=== PATIENT | female | born 1955 | race Caucasian/White ===

== ENCOUNTER 2017-10-16 22:23 | Emergency (ER) | payer OTHER ==
[~2017-10-16] VITALS: Ht 165.1 cm; Wt 78.5 kg
[~2017-10-16 22:23] MED LIST: ASPEC81 PO; FEXO60TA PO; FISHOIL PO; MULTTAB58 PO; NSNN50; TPRSR25 PO
[2017-10-16 22:28] VITALS: TEMP 36.8; Ht 165.1 cm; Wt 78.5 kg
[2017-10-16] MEDS ORDERED: DILTIAZEM BOLUS / DRIP IV STA (22:37)
[2017-10-16] MEDS ORDERED: DILTIAZEM HCL INJ 125 MG in DEXTROSE 5% 100ML IV PRN (22:45)
[2017-10-16] MEDS ORDERED: DILTIAZEM HCL 5 MG/ML 5 ML VIAL BOLUS/OMNI IV ONE (22:45)
[2017-10-16 23:16] LABS: BASO % 0.3 %; BASO ABS # 0.02 K/uL (0-0.2); EOS % 5.4 %; EOS ABS # 0.32 K/uL (0-0.5); HEMATOCRIT 40.1 % (37-47); HEMOGLOBIN 13.9 g/dL (12.0-16.0); IG# 0.01 K/uL (0.00-0.02); LYMPH % 24.8 %; LYMPH ABS # 1.46 K/uL (1.2-3.4); MEAN CELL VOLUME 91.1 fL (80-100); MEAN CORPUSCULAR HEMOGLOBIN 31.6 pg (25-34); MEAN CORPUSCULAR HGB CONC 34.7 g/dl (32-36); MEAN PLATELET VOLUME 10.5 fL (7.4-10.4); MONO % 13.6 %; NEUT % 55.7 %; NEUT ABS # 3.27 K/uL (1.4-6.5); PLATELET COUNT 193 K/uL (130-400); RED CELL DISTRIBUTION WIDTH SD 43.5 fL (36.4-46.3); WHITE BLOOD COUNT 5.88 K/uL (4.8-10.8)
[2017-10-16 23:35] LABS: BLOOD UREA NITROGEN 27 mg/dl (7-18); CALCIUM 9.4 mg/dl (8.5-10.1); CARBON DIOXIDE 26 mmol/L (21-32); CREATININE 0.87 mg/dl (0.60-1.20); GLUCOSE 111 mg/dl (70-99); POTASSIUM 3.6 mmol/L (3.5-5.1); SODIUM 139 mmol/L (136-145)
[2017-10-16 23:45] LABS: CKMB 2.2 ng/ml (0.5-3.6)
[2017-10-17] MEDS ORDERED: MELA1TAB5 PO (00:16)
[2017-10-17] MEDS ORDERED: METO25TA3 PO (00:16)
[2017-10-17] MEDS ORDERED: ASPI81TA28 PO (00:16)
[2017-10-17] MEDS ORDERED: MISCCAP80 PO (00:17)
[2017-10-17] MEDS ORDERED: CLR10 PO (00:17)
--- NOTE | 2017-10-17 00:20 | EMERGENCY ROOM VISIT NOTE ---
History Report prepared by Leticia: Radha Johnson Under the Supervision of: Dr. Declan Whiting D.O. First contact with patient: 22:32 Chief Complaint: CARDIAC ASSESSMENT Stated Complaint: RAPID HEART BEAT, SHORT OF BREATH History of Present Illness The patient is a 62 year old female who presents to the Emergency Room for a cardiac assessment. The patient states that she was watching TV two hours ago and started to feel her heart flutter out of her chest. She states that this has happened in the past. She notes that she is on Metoprol and took an extra 25 mg two hours ago to try to help. The patient states that she felt short of breath as well. The patient notes that she also takes an Aspirin. Source of History: patient Onset: two hours ago Position: chest Quality: other (heart fluttering out of chest) Timing: other (episode) Associated Symptoms: + SOB Review of Systems See HPI for pertinent positives & negatives. A total of 10 systems reviewed and were otherwise negative. Past Medical & Surgical Surgical Problems: (1) S/P endometrial ablation (2) S/P tubal ligation Family History FH: [place] (myocardial infarction) FATHER, Onset:60 years & older FHx: atrial fibrillation BROTHER Social History Smoking Status: Never Smoker Alcohol Use: none Marital Status: Housing Status: lives with significant other Occupation Status: employed Current/Historical Medications Scheduled Aspirin (Aspir-Low), 81 MG PO QAM Fexofenadine Hcl (Cecy Allergy), 60 MG PO DAILY PRN Fish Oil ([place]-3), 1 CAP PO DAILY Metoprolol Succinate (Metoprolol Succinate ER), 25 MG PO QAM Mometasone Furoate (Nasal) (Nasonex), 2 SPRAY NA DAILY PRN Multiple Vitamin (Multivitamin), 1 TAB PO DAILY Allergies Coded Allergies: No Known Allergies (Unverified , 02/01/12) Physical Exam Vital Signs Date Time Temp Pulse Resp B/P (MAP) Pulse Ox O2 Delivery O2 Flow Rate FiO2 10/17/17 00:00 147/86 10/16/17 23:53 66 13 96 10/16/17 23:30 142/77 10/16/17 23:23 69 16 98 10/16/17 22:59 141/85 10/16/17 22:53 75 26 98 10/16/17 22:44 77 10/16/17 22:41 155/90 1/18/18 22:28 36.8 139 19 141/90 95 Room Air Physical Exam CONSTITUTIONAL/VITAL SIGNS: Reviewed / noted above. GENERAL: Non-toxic in appearance. INTEGUMENTARY: Warm, dry, and [place]. HEAD: Normocephalic. EYES: without scleral icterus or trauma. ENT/OROPHARYNX: clear and moist. LYMPHADENOPATHY/NECK: Is supple without lymphadenopathy or meningismus. RESPIRATORY: Lungs clear and equal. CARDIOVASCULAR: Regular rate and rhythm. GI/ABDOMEN: Soft and nontender. No organomegaly or pulsatile mass. No rebound or guarding. Normal bowel sounds. EXTREMITIES: Warm and well perfused. BACK: No CVA tenderness. NEUROLOGICAL: Intact without focal deficits. PSYCHIATRIC: normal affect. MUSCULOSKELETAL: Normally developed with good muscle tone. Medical Decision & Procedures Laboratory Results 10/16/17 23:00 Red Blood Count 4.40, Mean Corpuscular Volume 91.1, Mean Corpuscular Hemoglobin 31.6, Mean Corpuscular Hemoglobin Concent 34.7, Mean Platelet Volume 10.5, Neutrophils (%) (Auto) 55.7, Lymphocytes (%) (Auto) 24.8, Monocytes (%) (Auto) 13.6, Eosinophils (%) (Auto) 5.4, Basophils (%) (Auto) 0.3, Neutrophils # (Auto ) 3.27, Lymphocytes # (Auto) 1.46, Monocytes # (Auto) 0.80, Eosinophils # (Auto ) 0.32, Basophils # (Auto) 0.02 10/16/17 23:00 Test 10/16/17 23:00 White Blood Count 5.88 K/uL (4.8-10.8) Red Blood Count 4.40 M/uL (4.2-5.4) Hemoglobin 13.9 g/dL (12.0-16.0) Hematocrit 40.1 % (37-47) Mean Corpuscular Volume 91.1 fL (80-100) Mean Corpuscular Hemoglobin 31.6 pg (25-34) Mean Corpuscular Hemoglobin Concent 34.7 g/dl (32-36) Platelet Count 193 K/uL (130-400) Mean Platelet Volume 10.5 fL (7.4-10.4) Neutrophils (%) (Auto) 55.7 % Lymphocytes (%) (Auto) 24.8 % Monocytes (%) (Auto) 13.6 % Eosinophils (%) (Auto) 5.4 % Basophils (%) (Auto) 0.3 % Neutrophils # (Auto) 3.27 K/uL (1.4-6.5) Lymphocytes # (Auto) 1.46 K/uL (1.2-3.4) Monocytes # (Auto) 0.80 K/uL (0.11-0.59) Eosinophils # (Auto) 0.32 K/uL (0-0.5) Basophils # (Auto) 0.02 K/uL (0-0.2) RDW Standard Deviation 43.5 fL (36.4-46.3) RDW Coefficient of Variation 13.0 % (11.5-14.5) Immature Granulocyte % (Auto) 0.2 % Immature Granulocyte # (Auto) 0.01 K/uL (0.00-0.02) Anion Gap 7.0 mmol/L (3-11) Est Creatinine Clear Calc Drug Dose 69.4 ml/min Estimated GFR () 82.8 Estimated GFR (Non- 71.4 BUN/Creatinine Ratio 31.1 (10-20) Calcium Level 9.4 mg/dl (8.5-10.1) Total Creatine Kinase 229 U/L (26-192) Creatine Kinase MB 2.2 ng/ml (0.5-3.6) Creatine Kinase MB Ratio 1.0 (0-3.0) Troponin I < 0.015 ng/ml (0-0.045) Thyroid Stimulating Hormone (TSH) 10.100 uIu/ml (0.300-4.500) Laboratory results as stated above per my review. ECG Indication: SOB/dyspnea Rate (beats per minute): 147 Rhythm: atrial fibrillation Findings: no acute ischemic change, no ectopy Comparison ECG Date: Repeat, May 20, 2017 Change: Repeat: sinus rhythm, rate of 76, 1st Degree AV Block, LBBB, no acute ischemia, no ectopy. April: LBBB is chronic. ED Course 2236: Previous medical records were reviewed. The patient was evaluated in room B4B. A complete history and physical examination was performed. 2243: Patient's electrocardiogram interpreted by me. 2244:Patient's repeat electrocardiogram interpreted by me. 2255: I reevaluated the patient and she is doing well. 0009: On reevaluation, the patient is resting comfortably. I discussed the results and findings with the patient. She verbalized agreement of the treatment plan. The patient was discharged home. Medical Decision the differential was considered includes acute myocardial infarction, acute coronary syndrome, myocarditis, pericarditis, pericardial effusions /tamponade, esophageal perforation, thoracic aortic dissection, pulmonary embolism, pneumonia, pneumothorax, pancreatitis, shingles, acute cholecystitis, perforated abdominal viscus. This is a 62-year-old female who presents to the ED with a chief complaint of palpitations. The patient states that it started suddenly while watching TV around 8:15 PM. She does report a history of atrial fibrillation. She is on aspirin but no additional anticoagulation. She states that her doctor told her to take an extra Lopressor and she took 25 mg extra this evening about 2 hours prior to arrival. Her physical exam revealed an irregular rapid heart rate at a rate around 140. Her 12-lead EKG initially showed atrial flutter with RVR at a rate of 147. During the patient's initial evaluation, she spontaneously converted to a sinus rhythm at a rate of 76. She has a left bundle-branch block that was compared to an EKG from the [facility] from 05/20/2017. This shows a chronic left bundle branch block. The patient's CBC and metabolic panel were unremarkable. Troponin was negative. The patient was observed here on a monitor. She had no additional recurrences of symptoms. She is felt to be stable for discharge and outpatient follow-up. Medication Reconcilliation Current Medication List: was personally reviewed by me Blood Pressure Screening Patient's blood pressure: Elevated blood pressure Blood pressure disposition: Elevated BP felt to be situational Impression Primary Impression: Atrial fibrillation with RVR Scribe Attestation The scribe's documentation has been prepared under my direction and personally reviewed by me in its entirety. I confirm that the note above accurately reflects all work, treatment, procedures, and medical decision making performed by me. Departure Information Dispostion Home / Self-Care Referrals No Doctor, Assigned (PCP) Forms IMPORTANT VISIT INFORMATION Patient Instructions My [facility] Additional Instructions Follow-up with your doctor for further care and evaluation in 1-7 days. Return to the emergency department for worsening or new symptoms or any concerns. You have been examined and treated today on an emergency basis only. This is not a substitute for, or an effort to provide, complete comprehensive medical care. It is impossible to recognize and treat all injuries or illnesses in a single emergency department visit. It is therefore important that you follow up closely with your doctor. Call as soon as possible for an appointment.
[2017-10-17 00:24] VITALS: BP 139/82; PULSE 61; O2SAT 98
== END 2017-10-17 00:24 | disposition home or self-care (01) ==
LOC: C.EDB 22:24
DX: I48.91 Unspecified atrial fibrillation (principal); R00.0 Tachycardia, unspecified; R06.02 Shortness of breath

== ENCOUNTER 2021-04-09 09:16 | Observation (INO) ==
[2021-04-09 09:48] LABS: Basophils # (auto) 0.03 K/uL (0-0.2); Basophils % (auto) 0.4 %; Eosinophils # (auto) 0.22 K/uL (0-0.5); Eosinophils % (auto) 2.8 %; Hematocrit (blood only) 41.7 % (37-47); Immature Granulocytes # (auto) 0.02 K/uL (0.00-0.02); Immature Granulocytes % (auto) 0.3 %; Lymphocytes % (auto) 28.8 %; Mean Corpuscular Hemoglobin 30.8 pg (25-34); Mean Corpuscular Hgb Conc 33.6 g/dL (32-36); Mean Corpuscular Volume 91.6 fL (80-100); Mean Platelet Volume 10.6 fL (7.4-10.4); Monocytes # (auto) 0.85 K/uL (0.11-0.59); Monocytes % (auto) 10.7 %; Neutrophils # (auto) 4.56 K/uL (1.4-6.5); Platelet Count 263 K/uL (130-400); RDW Standard Deviation 43.4 fL (36.4-46.3); Red Blood Count 4.55 M/uL (4.2-5.4); White Blood Count 7.98 K/uL (4.8-10.8)
[2021-04-09] MEDS ORDERED: dilTIAZem HCl 5 MG/ML 5 ML VIAL IV ONE (10:02)
[2021-04-09] MEDS ORDERED: dilTIAZem HCl 5 MG/ML 5 ML VIAL IV STA ×2 (10:04→10:46)
--- NOTE | 2021-04-09 10:09 | Emergency Department Note ---
History of Present Illness General Chief complaint: Arrhythmia/Palpitations Stated complaint: CONSTIPATION,SOB Time Seen by Provider: 04/09/21 09:55 Source: patient History of Present Illness Provider complaint: Palpitations Onset (ago): hour(s) Location: chest Pain Consistency: + constant Maximum Pain Intensity: 0 Quality: + other (Heart racing) Relieved By: + none Associated symptoms: + shortness of breath (With exertion such as climbing the stairs); no chest pain, no cough, no fever/chills, no headaches, no nausea/vomiting and no weakness This is a 65-year-old female with a history of paroxysmal atrial fibrillation on aspirin presenting with palpitations since 6 AM this morning when she woke up. She had no symptoms last night and has been in her usual state of health. She states that she feels like her heart is racing. She has some mild associated shortness of breath but only if she exerts herself such as climbing stairs. She has no chest discomfort or pain. She states that she felt like she had an episode 3 days ago but it was brief and self resolved. She denies any recent fever, cough or cold symptoms, vomiting, diarrhea or urinary symptoms. She has had no leg swelling or pain. She states that she saw her nurses supervisor who determined based on her loop recorder had an episode in mid February with a 30- minute episode of atrial fibrillation. She states that he does not feel she needs anticoagulation other than aspirin. The patient does not drink alcohol. She does state that she has been under a lot of stress recently as her son is getting a divorce and living with her. Home Medications Medication Instructions Recorded Confirmed Type melatonin 3 mg PO HS PRN 03/18/19 04/09/21 History latanoprost 0.005 % eye drops 1 drops OPL HS 03/14/20 04/09/21 History Probiotic 1 cap PO QAM 03/20/20 04/09/21 History olopatadine 0.2 % eye drops 1 drops OP DAILY PRN 03/29/20 04/09/21 History metoprolol succinate 50 mg 50 mg PO QAM #90 tab 05/08/20 04/09/21 Rx tablet,extended release 24 hr hydrocortisone 1 appln TOP BID PRN 05/16/20 04/09/21 History aspirin 81 mg tablet,delayed 81 mg PO DAILY tab 06/14/20 04/09/21 History release azelastine 137 mcg (0.1 %) nasal 2 spray INTNAS DAILY ml 08/01/20 04/09/21 History spray aerosol ipratropium bromide 42 mcg (0.06 2 spray INTRANASAL DAILY #15 ml 02/23/21 04/09/21 Rx %) nasal spray naproxen 500 mg tablet 500 mg PO .COMPLEX #60 tab 03/15/21 04/09/21 Rx nystatin 100,000 unit/gram topical 1 applic TOPICAL TID #30 g 03/19/21 04/09/21 Rx powder Allergies Allergy/AdvReac Type Severity Reaction Status Date / Time suture Allergy Intermediate poor Verified 04/09/21 09:54 healing, redness (see comments) Past Med/Surg History Medical History Arthritis Atrial fibrillation History of squamous cell carcinoma Irritable bowel syndrome with constipation LBBB (left bundle branch block) Pseudoexfoliation (PXF) glaucoma of left eye Vertigo occasional Surgical History H/O dilation and curettage D&C: 03/08/19: LMA#4 at [facility] [place] History of loop recorder (05/16/20) History of squamous cell carcinoma excision REMOVED FROM FACE History of tubal ligation S/P endometrial ablation (2006) S/P right knee arthroscopy (05/23/20) w/partial medial and lateral meniscectomies Family History Mother Hypothyroidism Diabetes Osteoporosis Sister Diabetes Father Heart disease Hypertension Myocardial infarction, Onset Age: 63 Denies family history of Ovarian cancer Breast cancer Lung cancer Colorectal cancer Social History Smoking Status: Never smoker Second Hand Exposure: No; Do You Dip or Chew Tobacco: No; Tobacco Cessation Education Requested by Patient: No Hx Alcohol Use: No Hx Substance Use: No Preferred Language: Amharic Communication Ability: Effective Visual Impairment: No Limitations Hearing Ability: Normal Parking Control Officer Required: No Beliefs That Will Affect Care: None marital status: Current Living Situation: Spouse Current Living Situation Comment: spouse and older son current occupational status: employed 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 and A total of 10 systems reviewed and were otherwise negative Physical Exam Vital Signs Vital Signs - 24 hr 04/09/21 09:21 04/09/21 09:30 04/09/21 09:34 Temperature 35.9 C L Temperature Source Temporal Artery Scan Pulse Rate 146 H 137 H 130 H Pulse Rate from SpO2 Sensor Pulse Rhythm Irregular Respiratory Rate 20 22 20 Respiratory Effort / Characteristics Non-Labored Respiratory Depth Normal Blood Pressure 151/76 H Blood Pressure Mean 101 Pulse Oximetry 97 98 Oxygen Delivery Method Room Air Room Air Sepsis Recent Fever Within 48 Hours No Sepsis New/Unexplained Change in Mental Status N/A Sepsis Action Taken by Nursing No Action Required 04/09/21 10:00 04/09/21 10:31 04/09/21 10:54 Temperature Temperature Source Pulse Rate 133 H 93 H 123 H Pulse Rate from SpO2 Sensor 136 H 97 H Pulse Rhythm Respiratory Rate 17 13 17 Respiratory Effort / Characteristics Respiratory Depth Blood Pressure 154/119 H 122/99 150/97 H Blood Pressure Mean 130 106 114 Pulse Oximetry 99 97 Oxygen Delivery Method Sepsis Recent Fever Within 48 Hours Sepsis New/Unexplained Change in Mental Status Sepsis Action Taken by Nursing 04/09/21 11:01 04/09/21 11:30 04/09/21 12:00 Temperature Temperature Source Pulse Rate 99 H 94 H 124 H Pulse Rate from SpO2 Sensor Pulse Rhythm Respiratory Rate 17 13 19 Respiratory Effort / Characteristics Respiratory Depth Blood Pressure 126/84 130/74 146/97 H Blood Pressure Mean 98 92 113 Pulse Oximetry Oxygen Delivery Method Sepsis Recent Fever Within 48 Hours Sepsis New/Unexplained Change in Mental Status Sepsis Action Taken by Nursing 04/09/21 12:30 04/09/21 13:00 Temperature Temperature Source Pulse Rate 117 H 58 L Pulse Rate from SpO2 Sensor Pulse Rhythm Respiratory Rate 21 19 Respiratory Effort / Characteristics Respiratory Depth Blood Pressure 129/93 127/78 Blood Pressure Mean 105 94 Pulse Oximetry Oxygen Delivery Method Sepsis Recent Fever Within 48 Hours Sepsis New/Unexplained Change in Mental Status Sepsis Action Taken by Nursing Constitutional: Vital signs reviewed. Eyes: Pupils are equal round reactive to light. Conjunctiva are noninjected. ENT: Pharynx is clear without erythema or exudate. Mucous membranes are moist. Neck supple without meningeal signs. Respiratory: Clear to auscultation bilaterally. Breath sounds are equal bilaterally. Cardiovascular: Tachycardic. Heart rate 129. GI: Soft, nondistended and nontender. Bowel sounds are present. Musculoskeletal: No peripheral edema. No lower extremity tenderness. Integumentary: No cyanosis. or jaundice. Neurological: The patient is awake and alert. No focal deficits. Psychiatric: Normal affect. Course Administered Medications Diltiazem HCl 125 mg/ Dextrose 125 mls @ 0 mls/hr IV .Q0M [facility]; Protocol Stop: 05/09/21 11:44 Last Titration: 04/09/21 14:27 Dose: 0 mg/hr, 0 mls/hr Documented by: [id number] Cosigned by: [id number] Titration: 04/09/21 13:04 Dose: 0 mg/hr, 0 mls/hr Documented by: [id number] Cosigned by: [id number] Titration: 04/09/21 12:20 Dose: 10 mg/hr, 10 mls/hr Documented by: [id number] Cosigned by: [id number] Admin: 04/09/21 11:57 Dose: 5 mg/hr, 5 mls/hr Documented by: [id number] Cosigned by: [id number] Heparin Sodium/Dextrose (Heparin Sodium/Dextrose) 25,000 units in 500 mls @ 23 mls/hr IV .[id number] [facility]; Protocol Stop: 05/09/21 13:44 Last Admin: 04/09/21 15:50 Dose: Not Given Documented by: [id number] Miscellaneous (*Pataday*Order Awaiting Action) 1 ea N/A QS [facility] Stop: 05/09/21 15:59 Last Admin: 04/09/21 16:38 Dose: Not Given Documented by: [id number] Discontinued Medications Diltiazem HCl (Diltiazem Hcl 5 Mg/Ml 5 Ml Vial) Confirm Administered Dose 25 mg IV .STK-MED ONE Stop: 04/09/21 10:03 Last Admin: 04/09/21 10:06 Dose: Not Given Documented by: [id number] Diltiazem HCl (Diltiazem Hcl 5 Mg/Ml 5 Ml Vial) 10 mg IV NOW STA Stop: 04/09/21 10:05 Last Admin: 04/09/21 10:05 Dose: 10 mg Documented by: [id number] Cosigned by: [id number] Diltiazem HCl (Diltiazem Hcl 5 Mg/Ml 5 Ml Vial) 10 mg IV NOW STA Stop: 04/09/21 10:47 Last Admin: 04/09/21 10:55 Dose: 10 mg Documented by: [id number] Cosigned by: [id number] Heparin Sodium/Dextrose (Heparin Iv Adult Wt-Based Standard *No* Bolus Protocol) 1 ea IV Q30M [facility]; Protocol Stop: 05/09/21 13:14 Last Admin: 04/09/21 16:38 Dose: Not Given Documented by: [id number] Sodium Chloride (Nss 1000ml) 250 mls @ 999 mls/hr IV .Q16M ONE Stop: 04/09/21 11:01 Last Infusion: 04/09/21 12:01 Dose: 0 mls/hr Documented by: [id number] Admin: 04/09/21 10:55 Dose: 999 mls/hr Documented by: [id number] Miscellaneous (Stat Iv Infusion Titration Per Protocol) 1 ea N/A NOW STA Stop: 04/09/21 11:40 Last Admin: 04/09/21 11:58 Dose: 1 ea Documented by: [id number] Critical Care Time Critical Care Time: Yes Total Critical Care Time: 35 I have personally spent approximately 35 minutes of critical care time in the direct management of this patient. This includes bedside care, interpretation of diagnostic studies, and testing, discussion with consultants, patient, and family members, and other required patient management activities. These minutes are in excess of all separately billable procedures. Medical Decision Making Differential Diagnosis Atrial fibrillation, atrial fibrillation with RVR, ventricular tachycardia, electrolyte abnormality, ACS Medical Records Attestation: I reviewed the patient's medical records. I did perform a limited focused review of portions of the patient's old chart on the electronic medical record. The patient has had no recent pertinent visits to this hospital. Home Medications Current Medication List: was personally reviewed by me Laboratory Data Attestation: I reviewed the patient's lab results. Result diagrams: 04/09/21 09:34 04/09/21 09:34 Lab Results 04/09/21 04/09/21 04/09/21 Range/Units 09:34 09:34 09:34 WBC 7.98 (4.8-10.8) K/uL RBC 4.55 (4.2-5.4) M/uL Hgb 14.0 (12.0-16.0) g/dL Hct 41.7 (37-47) % MCV 91.6 (80-100) fL MCH 30.8 (25-34) pg MCHC 33.6 (32-36) g/dL RDW Std Deviation 43.4 (36.4-46.3) fL RDW Coeff of Mendy 13.0 (11.5-14.5) % Plt Count 263 (130-400) K/uL MPV 10.6 H (7.4-10.4) fL Immature Gran % (Auto) 0.3 % Neut % (Auto) 57.0 % Lymph % (Auto) 28.8 % [place] % (Auto) 10.7 % Eos % (Auto) 2.8 % Baso % (Auto) 0.4 % Neut # (Auto) 4.56 (1.4-6.5) K/uL Lymph # (Auto) 2.30 (1.2-3.4) K/uL [place] # (Auto) 0.85 H (0.11-0.59) K/uL Eos # (Auto) 0.22 (0-0.5) K/uL Baso # (Auto) 0.03 (0-0.2) K/uL Immature Gran # (Auto) 0.02 (0.00-0.02) K/uL APTT (21.0-31.0) Seconds PTT Ratio Sodium 139 (136-145) mmol/L Potassium 4.3 (3.5-5.1) mmol/L Chloride 109 H (98-107) mmol/L Carbon Dioxide 24 (21-32) mmol/L Anion Gap 6.0 (3-11) BUN 24 H (7-18) mg/dl Creatinine 0.91 (0.6-1.2) mg/dl Est Cr Clr Drug Dosing 63.1 ml/min Est GFR ( Amer) 76.7 ml/min Est GFR (Non-Af Amer) 66.2 ml/min BUN/Creatinine Ratio 26.7 H (10-20) Glucose 98 (70-99) mg/dl Calcium 9.5 (8.5-10.1) mg/dl Magnesium 2.5 H (1.8-2.4) mg/dl Total Bilirubin 0.4 (0.2-1) mg/dl AST 20 (15-37) U/L ALT 25 (12-78) U/L Alkaline Phosphatase 65 (45-117) U/L Troponin I < 0.015 (0-0.045) ng/ml Total Protein 8.2 (6.4-8.2) gm/dl Albumin 4.1 (3.4-5.0) gm/dl Globulin 4.1 H (2.5-4.0) gm/dl Albumin/Globulin Ratio 1.0 (0.9-2) TSH 3.040 (0.300-4.500) uIu/ml Specimen Hemolysis COVID-19 Eval Order SARS-CoV-2 (PCR) (Negative) 04/09/21 04/09/21 04/09/21 Range/Units 09:34 11:45 11:45 WBC (4.8-10.8) K/uL RBC (4.2-5.4) M/uL Hgb (12.0-16.0) g/dL Hct (37-47) % MCV (80-100) fL MCH (25-34) pg MCHC (32-36) g/dL RDW Std Deviation (36.4-46.3) fL RDW Coeff of Mendy (11.5-14.5) % Plt Count (130-400) K/uL MPV (7.4-10.4) fL Immature Gran % (Auto) % Neut % (Auto) % Lymph % (Auto) % [place] % (Auto) % Eos % (Auto) % Baso % (Auto) % Neut # (Auto) (1.4-6.5) K/uL Lymph # (Auto) (1.2-3.4) K/uL [place] # (Auto) (0.11-0.59) K/uL Eos # (Auto) (0-0.5) K/uL Baso # (Auto) (0-0.2) K/uL Immature Gran # (Auto) (0.00-0.02) K/uL APTT 26.2 (21.0-31.0) Seconds PTT Ratio 1.0 Sodium (136-145) mmol/L Potassium (3.5-5.1) mmol/L Chloride (98-107) mmol/L Carbon Dioxide (21-32) mmol/L Anion Gap (3-11) BUN (7-18) mg/dl Creatinine (0.6-1.2) mg/dl Est Cr Clr Drug Dosing ml/min Est GFR ( Amer) ml/min Est GFR (Non-Af Amer) ml/min BUN/Creatinine Ratio (10-20) Glucose (70-99) mg/dl Calcium (8.5-10.1) mg/dl Magnesium (1.8-2.4) mg/dl Total Bilirubin (0.2-1) mg/dl AST (15-37) U/L ALT (12-78) U/L Alkaline Phosphatase (45-117) U/L Troponin I (0-0.045) ng/ml Total Protein (6.4-8.2) gm/dl Albumin (3.4-5.0) gm/dl Globulin (2.5-4.0) gm/dl Albumin/Globulin Ratio (0.9-2) TSH (0.300-4.500) uIu/ml Specimen Hemolysis COVID-19 Eval Order Covid19 at [facility] SARS-CoV-2 (PCR) NEGATIVE (Negative) Imaging Data Radiologist's Impression: Chest X-Ray 04/09/21 10:04 XR chest 1V portable HISTORY: Shortness of breath. COMPARISON: Chest 06/23/2019. FINDINGS: The cardiac silhouette remains mildly enlarged. No new focal lung consolidations to suggest pneumonia. No evidence for pulmonary edema. No pleural effusions. No pneumothorax. IMPRESSION: No significant change compared to the prior study. No acute process. Stable mild cardiomegaly. ACT 112: Negative or not required by law. Electronically signed by: Jesus Moreland M.D. 04/09/2021 10:45 AM ECG Data Attestation: I personally reviewed and interpreted this ECG as follows: Indication: + palpitations and + tachycardia Rate (beats per minute): 129 Rhythm: + atrial fibrillation ECG Intervals/blocks: + Left bundle branch block ECG [place]: + Left axis deviation ECG ST segments: + Nonspecific ST abnormalities ECG Findings: no PVCs Comparison ECG Date: from (June 23, 2019) Change: the following changes noted (Atrial fibrillation and tachycardia are new today. Left bundle branch block and left axis deviation are old.) Additional Comments: Repeat twelve-lead EKG performed after Cardizem IV administration per my interpretation demonstrates atrial fibrillation at a rate of 92 bpm. There is a persistent left bundle branch block with left axis deviation. Repeat twelve-lead EKG at 1252 demonstrates sinus bradycardia with a first- degree AV block. Rate is 56. Persistent left axis deviation and left bundle branch block. MDM Narrative I did evaluate the patient as noted above. The patient is presenting with palpitations since this morning. She has some dyspnea on exertion with that as well. She denies having any chest discomfort. She does have a history of A. fib but is only on aspirin. IV access was established. I did place an order for continuous cardiac monitoring. The monitor showed atrial fibrillation with RVR with a heart rate of 132. I did order and personally review the patient's 12-lead EKG as described above. She has A. fib with RVR with nonspecific ST changes. I did treat her with Cardizem 10 mg IV. Her heart rate came down to the 80s but after 15 minutes she went back up into the 120s to 130s. I did give her an additional dose of Cardizem 10 mg IV. I did order and personally reviewed the images of the patient's chest x-ray as described above. She has no acute process. I did order and review the patient's blood work as noted in the electronic medical record. CBC is unremarkable without leukocytosis or anemia. Electrolytes are unremarkable other than a chloride of 109. Troponin is negative. On reassessment her heart rate came down but then immediately shot back up into the 120s. I did start her on a Cardizem drip at 5 mg/h. I did discuss the case with Dr. Car who agreed with my plan to hospitalize the patient for further care and anticoagulation. I did discuss this with the patient and she was agreeable. I did discuss the case with the hospitalist and special education case manager. The Covid swab was negative. The nurse later told me that she converted to sinus rhythm and she was taken off of the Cardizem drip. Impression & Plan Atrial fibrillation with rapid ventricular response, TAPIA (dyspnea on exertion) Discharge Plan Visit Data Chief Complaint: Arrhythmia/Palpitations Stated Complaint: CONSTIPATION,SOB ED Provider: Grey Jefferson Discharge Problem: Atrial fibrillation with rapid ventricular response, TAPIA (dyspnea on exertion) Patient Disposition: Admitted As Inpatient Discharge Instructions Interventions: ED Discharge Assessment Last Done: 04/09/21 13:41
[2021-04-09 10:11] LABS: Albumin Level 4.1 gm/dl (3.4-5.0); BUN Creatinine Ratio 26.7 (10-20); Calcium 9.5 mg/dl (8.5-10.1); Creatinine Clr Calc Pharmacy 63.1 ml/min; Est GFR (African American) 76.7 ml/min; Est GFR (Non-African American) 66.2 ml/min; Magnesium 2.5 mg/dl (1.8-2.4); Potassium 4.3 mmol/L (3.5-5.1)
[2021-04-09 10:13] LABS: Bilirubin,Total 0.4 mg/dl (0.2-1); Globulin 4.1 gm/dl (2.5-4.0); Thyroid Stimulating Hormone 3.04 uIu/ml (0.300-4.500); Total Protein 8.2 gm/dl (6.4-8.2)
[2021-04-09] MEDS ORDERED: SODIUM CHLORIDE 0.9% 1000ML 250 ML IV ONE (10:46)
--- NOTE | 2021-04-09 10:46 | XRay Report ---
XR chest 1V portable HISTORY: Shortness of breath. COMPARISON: Chest 06/23/2019. FINDINGS: The cardiac silhouette remains mildly enlarged. No new focal lung consolidations to suggest pneumonia. No evidence for pulmonary edema. No pleural effusions. No pneumothorax. IMPRESSION: No significant change compared to the prior study. No acute process. Stable mild cardiomegaly. ACT 112: Negative or not required by law. Electronically signed by: Jesus Moreland M.D. 04/09/2021 10:45 AM
[2021-04-09] MEDS ORDERED: STAT IV Infusion **Titration per Protocol STA (11:39)
[2021-04-09] MEDS ORDERED: dilTIAZem HCL 125 MG in DEXTROSE 5% 100 ML IV SCH (11:45)
--- NOTE | 2021-04-09 12:20 | History & Physical Report ---
Date of Service April 09, 2021 Assessment & Plan (1) Paroxysmal atrial tachycardia: 65 yo female with history of paroxysmal atrial fibrillation. Chadsvasc score of 2 (age and sex). Did not respond to diltiazem 10 mg IV x2. Now on diltiazem drip. Will place on heparin drip. Will obtain echocardiogram. will consult cardiology. (2) History of loop recorder: as noted above. (3) LBBB (left bundle branch block): Normally has resting heart rate in 50-60s will monitor. History of Present Illness Chief Complaint: SOB on exertion Primary Care Provider: Leesa Severino DO This is a pleasant 65 yo female who comes into the ER with SOB on exertion and palpitations. Patient reports she was getting ready for work and after walking down the stairs she noticed chest palpitations followed by SOB. This prompted her to go into the ER. HR was elevated to the 130s-140s Patient did not respond to diltiazem and admission was called. Patient reports that she had a loop recorder placed in April of 2020. Patient follows up with Dr. Dao. She reports that she had one brief episode of atrial fibbrillation in 2014. For the past year, however, eventhough she has had palpitations and PACs, she has not had any atrial fibrillation except for when she saw her personal counselor earlier this month. She had a brief period which a fib which subsided. Though her CHADSWASC score is 2, it is mainly due to her age and sex. Given that the episode was brief, no anticoagulation was started. Allergies Allergy/AdvReac Type Severity Reaction Status Date / Time suture Allergy Intermediate poor Verified 04/09/21 09:54 healing, redness (see comments) Home Medications Medication Instructions Recorded Confirmed Type melatonin 3 mg PO HS PRN 03/18/19 04/09/21 History latanoprost 0.005 % eye drops 1 drops OPL HS 03/14/20 04/09/21 History Probiotic 1 cap PO QAM 03/20/20 04/09/21 History olopatadine 0.2 % eye drops 1 drops OP DAILY PRN 03/29/20 04/09/21 History metoprolol succinate 50 mg 50 mg PO QAM #90 tab 05/08/20 04/09/21 Rx tablet,extended release 24 hr hydrocortisone 1 appln TOP BID PRN 05/16/20 04/09/21 History azelastine 137 mcg (0.1 %) nasal 2 spray INTNAS DAILY ml 08/01/20 04/09/21 History spray aerosol ipratropium bromide 42 mcg (0.06 2 spray INTRANASAL DAILY #15 ml 02/23/2104/09 Rx %) nasal spray nystatin 100,000 unit/gram topical 1 applic TOPICAL TID #30 g 03/19/21 04/09/21 Rx powder apixaban 5 mg PO BID #60 tab 04/09/21 Rx Past Med/Surg History Medical History Arthritis Atrial fibrillation History of squamous cell carcinoma Irritable bowel syndrome with constipation LBBB (left bundle branch block) Pseudoexfoliation (PXF) glaucoma of left eye Vertigo occasional Surgical History H/O dilation and curettage D&C: 03[place]08[place] [facility] [place] loop recorder (05/16/20) History of squamous cell carcinoma excision REMOVED FROM FACE History of tubal ligation S/P endometrial ablation (2006) S/P right knee arthroscopy (05/23/20) w/partial medial and lateral meniscectomies Family History Mother Hypothyroidism Diabetes Osteoporosis Sister Diabetes Father Heart disease Hypertension Myocardial infarction, Onset Age: 63 Denies family history of Ovarian cancer Breast cancer Lung cancer Colorectal cancer Social History Smoking Status: Never smoker Second Hand Exposure: No; Do You Dip or Chew Tobacco: No; Tobacco Cessation Education Requested by Patient: No Hx Alcohol Use: No Hx Substance Use: No Preferred Language: Zambian Communication Ability: Effective Visual Impairment: No Limitations Hearing Ability: Normal Automatic Washer Mechanic Required: No Beliefs That Will Affect Care: None marital status: Current Living Situation: Spouse Current Living Situation Comment: spouse and older son current occupational status: employed 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 [employer] Other Information That Helps Us Care for You: No Feels Safe at Home: Yes Safety Concerns: Feels Safe At This Time Childhood Exposure to Second-Hand Smoke: No caffeine: Yes during the past year weight has: remained stable Dental Care, Regularly: Yes Physical Activity Frequency: 1-2 Times per Week Seatbelt Use: always Sunscreen Use: Yes Assistive Devices: None Review of Systems Constitutional: no fever and no sweats Eyes: no blind spots and no diplopia Ear, Nose, Mouth, Throat: no ear pain and no ear trauma Respiratory: no cough and no change in sputum Cardiovascular: + dyspnea on exertion and + palpitations; no chest pain and no chest pain with activity Gastrointestinal: no abdominal pain, no bloating and no nausea Genitourinary: no dysuria and no urinary frequency Musculoskeletal: no back pain and no radicular pain Integumentary: no acne and no rash Neurologic: no gait abnormality and no falls Psychiatric: no behavioral changes and no hopelessness Endocrine: no fatigue Hematologic / Lymphatic: no easy bleeding Allergy / Immunological: no lip swelling Physical Exam Constitutional: WD/WN, vitals as above Eyes: PERRL, conjunctivae normal, anicteric sclerae ENMT: external ear and nose normal, oropharynx normal Neck: trachea midline, no thyromegaly Respiratory: normal respiratory effort, lungs clear to auscultation Cardiovascular: Rate/Rhythm: + irregularly irregular Gastrointestinal (Abdomen): normal bowel sounds, soft, nontender, no hepatosplenomegaly Musculoskeletal: no cyanosis or clubbing, extremities motor strength 5/5 Skin: no rashes, warm and dry Neurologic: PERRL, EOMI, accommodation nl, no face palsy, no dysarthria Psychiatric: A+Ox3, euthymic affect Lymphatic: no cervical or axillary lymphadenopathy Results & Data Results & Data ([facility]) Vital Signs (Past 12 Hours) Vital Signs Temp Pulse Resp BP Pulse Ox 04/09/21 12:00 124 H 19 146/97 H 04/09/21 11:30 94 H 13 130/74 04/09/21 11:01 99 H 17 126/84 04/09/21 10:54 123 H 17 150/97 H 04/09/21 10:31 93 H 13 122/99 97 04/09/21 10:00 133 H 17 154/119 H 99 04/09/21 09:34 130 H 20 98 04/09/21 09:30 137 H 22 04/09/21 09:21 35.9 C L 146 H 20 151/76 H 97 PG Care Time/CCT Total # of Minutes Spent Total Time Spent with Patient: Total time spent is greater than 50% in coordination of care (as documented) at patient's floor/unit and/or counseling patient: Coding Level of Care Code 82936 Initial Inpt Care Lvl 3 Diagnoses Paroxysmal atrial tachycardia I47.1 History of loop recorder Z98.890 LBBB (left bundle branch block) I44.7
[2021-04-09] MEDS ORDERED: Heparin IV Adult Wt-Based Standard *NO* Bolus Protocol IV SCH (13:15)
[2021-04-09] MEDS ORDERED: HEPARIN SODIUM/DEXTROSE 25,000 UNITS/500 ML BAG IV SCH (13:45)
[2021-04-09] MEDS ORDERED: ONDANSETRON INJ 2 MG/ML 2 ML VIAL IV PRN (14:22)
[2021-04-09] MEDS ORDERED: ACETAMINOPHEN 325 MG TAB PO PRN (14:22)
[2021-04-09] MEDS ORDERED: POLYETHYLENE (MIRALAX) 17 GM PACK PO PRN (14:22)
[2021-04-09] MEDS ORDERED: MELATONIN 3 MG TAB PO PRN (14:22)
[2021-04-09 15:33] LABS: Partial Thromboplastin Time 26.2 Seconds (21.0-31.0)
--- NOTE | 2021-04-09 15:56 | Cardiology Consultation ---
Date of Consultation April 09, 2021 Assessment & Plan (1) Atrial fibrillation: She has had several well documented episodes of atrial fibrillation over the past several weeks. Her episode while camping was atrial fibrillation lasting nearly 4 hours. She also had an extended episode of atrial fibrillation today. The ventricular rates are slightly elevated during atrial fibrillation as well. We discussed options moving forward to include the addition of antiarrhythmic medication or possibly a pill in the pocket approach. It is concerning that she has had several episodes in such a short duration. It is unclear whether she will continue to have frequent episodes. Few symptoms asso ciated with the episodes other than palpitations and an element of exercise intolerance. Her overall stroke risk is on the lower side. However, technically she is a chads Vasc score 2. I did recommend systemic anticoagulation and she seemed agreeable to starting Eliquis at full dose. (2) LBBB (left bundle branch block): No known structural heart disease. However, conduction disease of this nature makes the use of antiarrhythmic agents slightly less attractive. Perhaps her frequency of episodes will not increase. Class 1 C agent should be used w ith caution, class 3 agent may be reasonable, especially dofetilide. History of Present Illness Reason for Consultation: Atrial fibrillation Requesting Physician: Roselia Attending Physician: Donell Veloz History of Present Illness The patient is a 65-year-old woman with a history of palpitations and remote episode of atrial fibrillation will previously undergone implantation of a loop recorder for diagnostic purposes. Patient reports being at her electrophysiologists office on April 02 when she underwent a download of her loop recorder memory. Apparently this demonstrated an episode of atrial fibrillation lasting approximately 1 hour earlier in February. The patient did not recall palpitations at that time. However, more recently she did experience an episode of palpitations that was extended in duration. This occurred while camping and lasted a few hours. She did not have associated dizziness, shortness of breath or chest pain, but does have notable fatigue and an element of exercise intolerance. It is very difficult for her to sleep or relax when she has the palpitations. She did activate her device during that episode today she also developed similar palpitations. Based on the nature of her symptoms she felt as though an evaluation in the emergency room would be worthwhile. She was noted to be in atrial fibrillation briefly during her hospitalization but did convert spontaneously to sinus rhythm. Currently she is feeling well. She denies episodes of chest pain with activity. She has not had dizziness or lightheadedness. No limiting dyspnea. Allergies Allergy/AdvReac Type Severity Reaction Status Date / Time suture Allergy Intermediate poor Verified 04/09/21 09:54 healing, redness (see comments) Home Medications Medication Instructions Recorded Confirmed Type melatonin 3 mg tablet 3 mg PO HS PRN 03/18/19 04/09/21 History latanoprost 0.005 % eye drops 1 drops OPL HS 03/14/20 04/09/21 History Lactobacillus acidophilus and 1 cap PO QAM 03/20/20 04/09/21 History rhamnosus 15 billion cell capsule (Probiotic) olopatadine 0.2 % eye drops 1 drops OP DAILY PRN 03/29/20 04/09/21 History metoprolol succinate 50 mg 50 mg PO QAM #90 tab 05/08/20 04/09/21 Rx tablet,extended release 24 hr hydrocortisone 2.5 % topical cream 1 appln TOP BID PRN 05/16/20 04/09/21 History azelastine 137 mcg (0.1 %) nasal 2 spray INTNAS DAILY ml 08/01/20 04/09/21 History spray aerosol ipratropium bromide 42 mcg (0.06 2 spray INTRANASAL DAILY #15 ml 02/23/21 04/09/21 Rx %) nasal spray nystatin 100,000 unit/gram topical 1 applic TOPICAL TID #30 g 03/19/21 04/09/21 Rx powder apixaban 5 mg tablet 5 mg PO BID #60 tab 04/09/21 Rx Patient History Medical History Arthritis Atrial fibrillation History of squamous cell carcinoma Irritable bowel syndrome with constipation LBBB (left bundle branch block) Pseudoexfoliation (PXF) glaucoma of left eye Vertigo occasional Surgical History H/O dilation and curettage [place]&C: [place] [facility] [place] of [place] recorder (05/16/20) History of squamous cell carcinoma excision REMOVED FROM FACE History of tubal ligation S/P endometrial ablation (2006) S/P right knee arthroscopy (05/23/20) w/partial medial and lateral meniscectomies Family History Mother Hypothyroidism Diabetes Osteoporosis Sister Diabetes Father Heart disease Hypertension Myocardial infarction, Onset Age: 63 Denies family history of Ovarian cancer Breast cancer Lung cancer Colorectal cancer Social History Smoking Status: Never smoker Second Hand Exposure: No; Do You Dip or Chew Tobacco: No; Tobacco Cessation Education Requested by Patient: No Hx Alcohol Use: No Hx Substance Use: No Preferred Language: Chinese Communication Ability: Effective Visual Impairment: No Limitations Hearing Ability: Normal 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 Beliefs That Will Affect Care: None marital status: Current Living Situation: Spouse Current Living Situation Comment: spouse and older son current occupational status: employed current occupation: [employer] Other Information That Helps Us Care for You: No Feels Safe at Home: Yes Safety Concerns: Feels Safe At This Time Childhood Exposure to Second-Hand Smoke: No caffeine: Yes during the past year weight has: remained stable Dental Care, Regularly: Yes Physical Activity Frequency: 1-2 Times per Week Seatbelt Use: always Sunscreen Use: Yes Assistive Devices: None Review of Systems Review of Systems: All systems reviewed & are unremarkable except as noted in HPI & below Per HPI. Physical Exam Physical Exam: She is alert and oriented x3. Mood affect appear normal. She answered all questions appropriately. HEENT: Sclerae are anicteric. Pupils are equal and reactive to light and accommodation. Extraocular movements were intact. Neuro: Cranial nerves intact Neck: Examination of the submandibular region did not reveal any significant lymphadenopathy. Carotids are palpable bilaterally and free of bruits on auscultation. There was no evidence of jugular venous distention. The thyroid was not enlarged. Lungs: Lungs are clear to auscultation bilaterally. There are no rales wheezes or rhonchi. She has normal respiratory effort without use of accessory muscles. There is normal pulmonary excursion. Cardiac: The rhythm was regular. S1 and S2 were normal. There are no murmurs on examination. The PMI was not markedly displaced on palpation. Abdomen: The abdomen was soft and nontender. Extremities: Patient has bilateral radial pulses that are equal in intensity. There is no evidence cyanosis or clubbing. There was no evidence of significant peripheral edema bilaterally. Skin: There are no rashes noted on examination today. Results & Data ([facility]) Vital Signs (Past 12 Hours) Vital Signs Temp Pulse Pulse Resp BP BP Pulse Ox 04/09/21 14:22 36.5 C 61 19 132/84 97 04/09/21 13:30 69 15 116/76 04/09/21 13:00 58 L 19 127/78 04/09/21 12:30 117 H 21 129/93 04/09/21 12:00 124 H 19 146/97 H 04/09/21 11:30 94 H 13 130/74 04/09/21 11:01 99 H 17 126/84 04/09/21 10:54 123 H 17 150/97 H 04/09/21 10:31 93 H 13 122/99 97 04/09/21 10:00 133 H 17 154/119 H 99 04/09/21 09:34 130 H 20 98 04/09/21 09:30 137 H 22 04/09/21 09:21 35.9 C L 146 H 20 151/76 H 97 Laboratory Results Abnormal Lab Results 04/09/21 04/09/21 04/09/21 09:34 09:34 09:34 WBC 7.98 RBC 4.55 Hgb 14.0 Hct 41.7 MCV 91.6 MCH 30.8 MCHC 33.6 RDW Std Deviation 43.4 RDW Coeff of Mendy 13.0 Plt Count 263 MPV 10.6 H Immature Gran % (Auto) 0.3 Neut % (Auto) 57.0 Lymph % (Auto) 28.8 Grayson % (Auto) 10.7 Eos % (Auto) 2.8 Baso % (Auto) 0.4 Neut # (Auto) 4.56 Lymph # (Auto) 2.30 Grayson # (Auto) 0.85 H Eos # (Auto) 0.22 Baso # (Auto) 0.03 Immature Gran # (Auto) 0.02 APTT PTT Ratio Sodium 139 Potassium 4.3 Chloride 109 H Carbon Dioxide 24 Anion Gap 6.0 BUN 24 H Creatinine 0.91 Est Cr Clr Drug Dosing 63.1 Est GFR ( Amer) 76.7 Est GFR (Non-Af Amer) 66.2 BUN/Creatinine Ratio 26.7 H Glucose 98 Calcium 9.5 Magnesium 2.5 H Total Bilirubin 0.4 AST 20 ALT 25 Alkaline Phosphatase 65 Troponin I < 0.015 Total Protein 8.2 Albumin 4.1 Globulin 4.1 H Albumin/Globulin Ratio 1.0 TSH 3.040 Specimen Hemolysis COVID-19 Eval Order SARS-CoV-2 (PCR) 04/09/21 04/09/21 04/09/21 09:34 11:45 11:45 WBC RBC Hgb Hct MCV MCH MCHC RDW Std Deviation RDW Coeff of Mendy Plt Count MPV Immature Gran % (Auto) Neut % (Auto) Lymph % (Auto) Grayson % (Auto) Eos % (Auto) Baso % (Auto) Neut # (Auto) Lymph # (Auto) Grayson # (Auto) Eos # (Auto) Baso # (Auto) Immature Gran # (Auto) APTT 26.2 PTT Ratio 1.0 Sodium Potassium Chloride Carbon Dioxide Anion Gap BUN Creatinine Est Cr Clr Drug Dosing Est GFR ( Amer) Est GFR (Non-Af Amer) BUN/Creatinine Ratio Glucose Calcium Magnesium Total Bilirubin AST ALT Alkaline Phosphatase Troponin I Total Protein Albumin Globulin Albumin/Globulin Ratio TSH Specimen Hemolysis COVID-19 Eval Order Covid19 at [facility] SARS-CoV-2 (PCR) NEGATIVE Diagnostic Findings Echocardiogram dated 12/31/2018: Normal LV systolic function with ejection fraction of 50-55%. Mild concentric LVH. Septal motion consistent with left bundle branch block. Mild mitral regurgitation. I reviewed the source images of her EKGs demonstrating atrial fibrillation and left bundle branch block. PG Care Time/CCT Total # of Minutes Spent Total Time Spent with Patient: Total time spent is greater than 50% in coordination of care (as documented) at patient's floor/unit and/or counseling patient: Coding Level of Care Code INT OBSERVATION CARE 70M LVL 3 Diagnoses Atrial fibrillation I48.91 LBBB (left bundle branch block) I44.7
--- NOTE | 2021-04-09 17:47 | Electrocardiogram Report ---
Test Reason : Blood Pressure : / mmHG Vent. Rate : 129 BPM Atrial Rate : 125 BPM P-R Int : 000 ms QRS Dur : 116 ms QT Int : 282 ms P-R-T Axes : 000 -55 113 degrees QTc Int : 413 ms Atrial fibrillation with rapid ventricular response Left axis deviation Abnormal ECG When compared with ECG of 23-JUN-2019 19:01, Atrial fibrillation has replaced Sinus rhythm Vent. rate has increased BY 61 BPM Left bundle branch block is no longer Present Confirmed by Ajay Tate ([id number]) on 04/09/2021 5:46:50 PM Referred By: Confirmed By:Benedict Tate
--- NOTE | 2021-04-09 17:48 | Electrocardiogram Report ---
Test Reason : Blood Pressure : / mmHG Vent. Rate : 092 BPM Atrial Rate : 100 BPM P-R Int : 000 ms QRS Dur : 118 ms QT Int : 384 ms P-R-T Axes : 000 -60 103 degrees QTc Int : 474 ms Atrial fibrillation Left axis deviation Abnormal ECG Confirmed by Ajay Tate ([id number]) on 04/09/2021 5:48:41 PM Referred By: REFERRED SELF Confirmed By:Benedict Tate
[2021-04-09] MEDS ORDERED: LATANOPROST 0.005% OP SOLN 2.5 ML BTL OPL SCH (21:00)
--- NOTE | 2021-04-09 21:06 | Discharge Summary ---
Date of Service April 09, 2021 Admission HPI Per Admitting Provider This is a pleasant 65 yo female who comes into the ER with SOB on exertion and palpitations. Patient reports she was getting ready for work and after walking down the stairs she noticed chest palpitations followed by SOB. This prompted her to go into the ER. HR was elevated to the 130s-140s Patient did not respond to diltiazem and admission was called. Patient reports that she had a loop recorder placed in April of 2020. Patient follows up with Dr. Dao. She reports that she had one brief episode of atrial fibbrillation in 2014. 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 She had a brief period which a fib which subsided. Though her CHADSWASC score is 2, it is mainly due to her age and sex. Given that the episode was brief, no anticoagulation was started. Principal Diagnosis Paroxysmal atrial fibrillation Discharge Exam Constitutional WD/WN, vitals as above Eyes PERRL, conjunctivae normal, anicteric sclerae ENMT external ear and nose normal, oropharynx normal Neck trachea midline, no thyromegaly Respiratory normal respiratory effort, lungs clear to auscultation Cardiovascular Rate/Rhythm: + irregularly irregular Gastrointestinal (Abdomen) normal bowel sounds, soft, nontender, no hepatosplenomegaly Musculoskeletal no cyanosis or clubbing, extremities motor strength 5/5 Skin no rashes, warm and dry Neurologic PERRL, EOMI, accommodation nl, no face palsy, no dysarthria Psychiatric A+Ox3, euthymic affect Lymphatic no cervical or axillary lymphadenopathy Discharge Data Allergies Allergy/AdvReac Type Severity Reaction Status Date / Time suture Allergy Intermediate poor Verified 04/09/21 09:54 healing, redness (see comments) Consultations 04/09/21 12:06 ED Decision to Admit Stat 04/09/21 14:22 Consult Cardiology Routine Hospital Course (1) Paroxysmal atrial tachycardia: 65 yo female with history of paroxysmal atrial fibrillation. Chadsvasc score of 2 (age and sex). Did not respond to diltiazem 10 mg IV x2. Now on diltiazem drip. Will place on heparin drip. Will obtain echocardiogram. will consult cardiology. Patient was evaluated by Cardiology later in the day: (bold) She has had several well documented episodes of atrial fibrillation over the past several weeks. Her episode while camping was atrial fibrillation lasting nearly 4 hours. She also had an extended episode of atrial fibrillation today. The ventricular rates are slightly elevated during atrial fibrillation as well. We discussed options moving forward to include the addition of antiarrhythmic medication or possibly a pill in the pocket approach. It is concerning that she has had several episodes in such a short duration. It is unclear whether she will continue to have frequent episodes. Few symptoms associated with the episodes other than palpitations and an element of exercise intolerance. Her overall stroke risk is on the lower side. However, technically she is a chads Vasc score 2. I did recommend systemic anticoagulation and she seemed agreeable to starting Eliquis at full dose. Patient will be discharged as she spontaneously cardioverted and will be followed up with cardiology within next few days. (2) History of loop recorder: as noted above. (3) LBBB (left bundle branch block): Normally has resting heart rate in 50-60s will monitor. Total Time Total Time Spent Total Time Spent (In Minutes): 30 Total Time Includes: Examination of the Patient, Discharge Planning, Medication Reconciliation and Communication With Other Providers Discharge Plan Discharge Items Patient Disposition: Home - Self-Care Reason For Visit: A FIB RVR Discharge Diagnosis: Paroxysmal atrial fibrillation Activity: Resume your previous activity Bathing: No limitations Exercise/Sports: None Driving/Machine Use: No limitations Non-emergency contact: Pediatric Intensive Physician Call non-emergency contact if: you have any medication questions and your symptoms worsen Follow-up/Referrals: Leesa Severino DO [Primary Care Provider] - Diet: Regular Addtl Attending Provider Instructions: None Pending Studies at Discharge: No Stand-Alone Forms: [facility] [employer] [facility], Smoking Cessation Medications and DC Order Prescriptions: New apixaban 5 mg tablet 5 mg PO BID Qty: 60 RF: 0 Continued metoprolol succinate 50 mg tablet extended release 24 hr 50 mg PO QAM Qty: 90 RF: 3 latanoprost 0.005 % drops 1 drops OPL HS RF: 0 azelastine 137 mcg (0.1 %) aerosol,spray 2 spray INTNAS DAILY RF: 0 nystatin 100,000 unit/gram powder 1 applic topical TID Qty: 30 RF: 3 olopatadine 0.2 % drops 1 drops OP DAILY PRN (Reason: allergies) RF: 0 ipratropium bromide 42 mcg (0.06 %) spray,non-aerosol 2 spray intranasal DAILY Qty: 15 RF: 11 melatonin 3 mg Tablet 3 mg PO HS PRN (Reason: Sleep) RF: 0 Probiotic 15 billion cell Capsule 1 cap PO QAM RF: 0 hydrocortisone 2.5 % cream 1 appln TOP BID PRN (Reason: prn) RF: 0 Discontinued naproxen 500 mg tablet 500 mg PO .COMPLEX Qty: 60 RF: 1 aspirin 81 mg tablet,delayed release (DR/EC) 81 mg PO DAILY RF: 0 Discharge Orders: Discharge Order (Routine); Ordered 04/09/21 Ordered By: Chalino Tate Admission Data Admit Date/Time: 04/09/21 13:08 Attending Provider: Donell Veloz Admit Provider: Donell Veloz Primary Care Provider: Leesa Severino Other Providers: Donell Veloz ; Nicholas Lucero Other Interventions: Discharge Summary Assessment (RN) Last Done: 04/09/21 17:47 Coding Level of Care Code OBSERV/HOSP SAME DATE LVL 3 Diagnoses Paroxysmal atrial tachycardia I47.1 History of loop recorder Z98.890 LBBB (left bundle branch block) I44.7
[2021-04-10] MEDS ORDERED: SACCHAROMYCES BOULARDII 250 MG CAP PO SCH (09:00)
[2021-04-10] MEDS ORDERED: ASPIRIN 81 MG ECTAB PO SCH (09:00)
[2021-04-10] MEDS ORDERED: METOPROLOL SUCC 50MG EXT REL TAB PO SCH (09:00)
[2021-04-10] MEDS ORDERED: IPRATROPIUM BROMIDE NASAL SPRAY 0.06% 15ML SCH (09:00)
--- NOTE | 2021-04-10 18:37 | Electrocardiogram Report ---
Test Reason : Blood Pressure : / mmHG Vent. Rate : 056 BPM Atrial Rate : 056 BPM P-R Int : 214 ms QRS Dur : 130 ms QT Int : 456 ms P-R-T Axes : 075 -55 093 degrees QTc Int : 440 ms Sinus bradycardia with 1st degree A-V block with Premature atrial complexes in a pattern of bigeminy Left axis deviation Left bundle branch block Abnormal ECG When compared with ECG of 09-APR-2021 11:03, Sinus rhythm has replaced Atrial fibrillation Vent. rate has decreased BY 36 BPM Left bundle branch block is now Present Confirmed by Ajay Tate ([id number]) on 04/10/2021 6:36:42 PM Referred By: REFERRED SELF Confirmed By:Benedict Tate
== END 2021-04-09 18:49 | disposition home or self-care (01) ==
LOC: ED 09:16 → INTOOBSV 13:08 → 2S 13:08